=== PATIENT | female | born 1980 | race African-American/Black ===

== ENCOUNTER 2024-09-30 13:31 | Emergency (ER) | payer MEDICAID ==
[~2024-09-30] VITALS: Ht 170.2 cm; Wt 106.0 kg
[2024-09-30 13:36] VITALS: BP 136/82; TEMP 36.7; O2SAT 100
[2024-09-30 13:38] VITALS: PULSE 79; RESP 18; O2SAT 99
[2024-09-30 14:25] LABS: CLARITY URINE CLEAR (CLEAR); COLOR URINE YELLOW (YELLOW); GLUCOSE URINE NEGATIVE (NEGATIVE); KETONES URINE NEGATIVE (NEGATIVE); LEUKOCYTE ESTERASE URINE NEGATIVE (NEGATIVE); NITRITE URINE NEGATIVE (NEGATIVE); OCCULT BLOOD URINE NEGATIVE (NEGATIVE); PROTEIN URINE NEGATIVE (NEGATIVE); SPECIFIC GRAVITY URINE 1.014 (1.005-1.030)
[2024-10-03 04:08] LABS: CHLAMYDIA TRACHOMATIS NAA Negative (Negative); NEISSERIA GONORRHOEAE NAA Negative (Negative)
== END 2024-09-30 18:49 | disposition home or self-care (01) ==
LOC: ER 13:31
DX: N89.8 Other specified noninflammatory disorders of vagina (principal); R10.2 Pelvic and perineal pain
CPT/HCPCS: 87491; 87591; 81003; 81025; 87210; 76830; 76856; 99284; Z7610 ×2